=== PATIENT | male | born 1975 | race Caucasian/White ===

== ENCOUNTER 2021-02-10 19:15 | Emergency (ER) | payer SELFPAY ==
[~2021-02-10] VITALS: Ht 180.3 cm; Wt 70.0 kg
[2021-02-10 19:24] VITALS: BP 172/98
== END 2021-02-10 23:20 | disposition left against medical advice (07) ==
LOC: ER 20:39
DX: R06.02 Shortness of breath (principal); Z53.21 Procedure and treatment not carried out due to patient leaving prior to being seen by health care provider
CPT/HCPCS: 93005